=== PATIENT | male | born 1945 | race Caucasian/White ===

== ENCOUNTER 2018-09-01 11:00 | Inpatient (IN) ==
[2018-09-01] MEDS ORDERED: ALBUTEROL/IPRATROPIUM 3 ML NEB RESP TX STA (11:24)
[2018-09-01 11:33] LABS: Basophils % 0.2 % (0.0-0.8); Hematocrit 37.8 VOL% (42.0-52.0); Hemoglobin 12.8 GM/DL (14.0-18.0); Immature Granulocytes Absolute 0.18 #; Lymphocytes # 0.6 10*3/uL (1.4-4.0); Lymphocytes % 3.4 % (21.2-54.2); Mean Corpuscular HGB Conc 33.9 GM/DL (32-36); Mean Corpuscular Volume 89.2 FL (87-102); Mean Platelet Volume 8.5 FL (9.6-12.0); Monocytes % 1.7 % (1.7-12.7); Neutrophils % 93.7 % (38.7-73.9); Platelet Count 399 T/CUMM (130-400); Red Blood Count 4.24 MC/CUMM (3.8-5.5); White Blood Count 17.4 T/CUMM (4-12)
[2018-09-01 11:52] LABS: Band Neutrophils 1 % (0-10); Lymphocytes 4 % (20-55); Platelet Estimate Adequate; Segmented Neutrophils 93 % (50-85); Total Cells Counted 100
[2018-09-01 11:54] LABS: Albumin 3.1 G/DL (3.4-5.0); Bilirubin,Total 0.9 MG/DL (0.2-1.0); Calcium 8.8 MG/DL (8.5-10.1); Osmolality,Calculated 269.4 MOS/KG (273-304); Total Protein 6.9 G/DL (6.4-8.3)
[2018-09-01] MEDS ORDERED: cefTRIAXone 1,000 MG in SODIUM CHLORIDE 0.9% 100 ML IV STA (12:52)
[2018-09-01] MEDS ORDERED: ALBUTEROL 2.5 MG/3 ML NEB RESP TX PRN (14:02)
[2018-09-01] MEDS ORDERED: ONDANSETRON 4 MG/2 ML VIAL IV PRN (14:05)
[2018-09-01] MEDS ORDERED: ACETAMINOPHEN 325 MG TABLET PO PRN (14:05)
[2018-09-01] MEDS: methylPREDNISolone SOD SUC 40 MG/1 ML VIAL IV SCH ×2 (16:46→21:36)
[2018-09-01] MEDS: ENOXAPARIN 40 MG/0.4 ML SYRINGE SUBCUT SCH (16:48)
[2018-09-01] MEDS: LEVOFLOXACIN INJ 750 MG in PREMIX 1 EACH IV SCH (16:50)
[2018-09-01] MEDS: ALBUTEROL/IPRATROPIUM 3 ML NEB RESP TX SCH (19:10)
[2018-09-01] MEDS: oxyCODONE/ACETAMINOPHEN 5-325 MG TABLET PO PRN (21:37)
[2018-09-02] MEDS: ALBUTEROL/IPRATROPIUM 3 ML NEB RESP TX SCH ×4 (00:33→20:16)
[2018-09-02 05:52] LABS: Hematocrit 34.3 VOL% (42.0-52.0); Hemoglobin 11.6 GM/DL (14.0-18.0); Immature Granulocytes % 0.3 %; Immature Granulocytes Absolute 0.02 #; Lymphocytes # 0.2 10*3/uL (1.4-4.0); Lymphocytes % 2.3 % (21.2-54.2); Mean Corpuscular HGB Conc 33.8 GM/DL (32-36); Mean Corpuscular Volume 90.3 FL (87-102); Mean Platelet Volume 9.1 FL (9.6-12.0); Monocytes % 1.5 % (1.7-12.7); Neutrophils % 95.9 % (38.7-73.9); Platelet Count 338 T/CUMM (130-400); Red Cell Distribution Width 12.2 % (9.3-17.3); White Blood Count 6.6 T/CUMM (4-12)
[2018-09-02] MEDS: methylPREDNISolone SOD SUC 40 MG/1 ML VIAL IV SCH ×3 (06:00→22:20)
[2018-09-02 06:17] LABS: Albumin 2.5 G/DL (3.4-5.0); Bilirubin,Total 0.5 MG/DL (0.2-1.0); Osmolality,Calculated 276.1 MOS/KG (273-304); Total Protein 7.3 G/DL (6.4-8.3)
[2018-09-02 06:17] LABS: Band Neutrophils 2 % (0-10); Burr Cells Slight; Hypochromasia 1+; Ovalocytes Slight; Platelet Estimate Adequate; Segmented Neutrophils 95 % (50-85); Total Cells Counted 100
[2018-09-02] MEDS ORDERED: VARENICLINE 1 MG PO SCH (09:00)
[2018-09-02] MEDS ORDERED: MECLIZINE 25 MG TABLET PO PRN (09:02)
[2018-09-02] MEDS: POTASSIUM CHLORIDE 20 MEQ TABLET PO PRN ×3 (09:37→17:55)
[2018-09-02] MEDS: ASPIRIN EC 81 MG TABLET PO SCH (09:38)
[2018-09-02] MEDS: DILTIAZEM CD 240 MG CAPSULE PO SCH (09:41)
[2018-09-02] MEDS: oxyCODONE/ACETAMINOPHEN 5-325 MG TABLET PO PRN ×2 (09:54→22:24)
[2018-09-02] MEDS ORDERED: METOPROLOL TARTRATE 5 MG/5 ML VIAL IV ONE ×2 (13:02→13:09)
[2018-09-02] MEDS: ENOXAPARIN 40 MG/0.4 ML SYRINGE SUBCUT SCH (14:37)
[2018-09-02] MEDS: LEVOFLOXACIN INJ 750 MG in PREMIX 1 EACH IV SCH (14:38)
[2018-09-02] MEDS: NEBIVOLOL 5 MG TABLET PO SCH (15:56)
[2018-09-03] MEDS: ALBUTEROL/IPRATROPIUM 3 ML NEB RESP TX SCH ×4 (01:19→20:01)
[2018-09-03 04:06] LABS: Basophils % 0.1 % (0.0-0.8); Hematocrit 35.5 VOL% (42.0-52.0); Hemoglobin 11.8 GM/DL (14.0-18.0); Immature Granulocytes % 0.7 %; Immature Granulocytes Absolute 0.06 #; Lymphocytes # 0.3 10*3/uL (1.4-4.0); Mean Corpuscular HGB Conc 33.2 GM/DL (32-36); Mean Corpuscular Volume 90.3 FL (87-102); Mean Platelet Volume 8.8 FL (9.6-12.0); Monocytes % 2.1 % (1.7-12.7); Neutrophils % 94.1 % (38.7-73.9); Platelet Count 424 T/CUMM (130-400); Red Blood Count 3.93 MC/CUMM (3.8-5.5); Red Cell Distribution Width 12.2 % (9.3-17.3); White Blood Count 8.6 T/CUMM (4-12)
[2018-09-03 04:29] LABS: Calcium 8.8 MG/DL (8.5-10.1); Osmolality,Calculated 275.2 MOS/KG (273-304)
[2018-09-03 04:45] LABS: Lymphocytes 3 % (20-55); Platelet Estimate Normal; Segmented Neutrophils 96 % (50-85); Total Cells Counted 100
[2018-09-03] MEDS: methylPREDNISolone SOD SUC 40 MG/1 ML VIAL IV SCH (05:50)
[2018-09-03] MEDS: ASPIRIN EC 81 MG TABLET PO SCH (10:07)
[2018-09-03] MEDS: oxyCODONE/ACETAMINOPHEN 5-325 MG TABLET PO PRN ×2 (10:07→21:55)
[2018-09-03] MEDS: NEBIVOLOL 5 MG TABLET PO SCH (11:41)
[2018-09-03] MEDS: DILTIAZEM CD 240 MG CAPSULE PO SCH (14:17)
[2018-09-03] MEDS: ENOXAPARIN 40 MG/0.4 ML SYRINGE SUBCUT SCH (14:56)
[2018-09-03] MEDS: LEVOFLOXACIN INJ 750 MG in PREMIX 1 EACH IV SCH (14:56)
[2018-09-04] MEDS: ALBUTEROL/IPRATROPIUM 3 ML NEB RESP TX SCH ×4 (01:50→20:29)
[2018-09-04 05:56] LABS: Hematocrit 33.9 VOL% (42.0-52.0); Hemoglobin 11.2 GM/DL (14.0-18.0); Immature Granulocytes % 0.5 %; Immature Granulocytes Absolute 0.03 #; Lymphocytes # 0.3 10*3/uL (1.4-4.0); Lymphocytes % 4.5 % (21.2-54.2); Mean Corpuscular Volume 89.4 FL (87-102); Mean Platelet Volume 9.1 FL (9.6-12.0); Monocytes % 5.5 % (1.7-12.7); Neutrophils % 89.5 % (38.7-73.9); Platelet Count 388 T/CUMM (130-400); Red Blood Count 3.79 MC/CUMM (3.8-5.5); Red Cell Distribution Width 12.6 % (9.3-17.3)
[2018-09-04 06:08] LABS: Calcium 8.9 MG/DL (8.5-10.1); Osmolality,Calculated 276.1 MOS/KG (273-304)
[2018-09-04 06:15] LABS: Lymphocytes 2 % (20-55); Platelet Estimate Normal; Segmented Neutrophils 96 % (50-85); Total Cells Counted 100
[2018-09-04 06:16] LABS: Hypochromasia Slight
[2018-09-04] MEDS: NEBIVOLOL 5 MG TABLET PO SCH (09:41)
[2018-09-04] MEDS: ASPIRIN EC 81 MG TABLET PO SCH (09:41)
[2018-09-04] MEDS: oxyCODONE/ACETAMINOPHEN 5-325 MG TABLET PO PRN ×2 (09:42→21:03)
[2018-09-04] MEDS: DILTIAZEM CD 240 MG CAPSULE PO SCH (09:42)
[2018-09-04] MEDS: ENOXAPARIN 40 MG/0.4 ML SYRINGE SUBCUT SCH (13:52)
[2018-09-04] MEDS: LEVOFLOXACIN INJ 750 MG in PREMIX 1 EACH IV SCH (13:52)
[2018-09-05] MEDS: ALBUTEROL/IPRATROPIUM 3 ML NEB RESP TX SCH ×4 (01:30→19:38)
[2018-09-05 04:02] LABS: Basophils % 0.2 % (0.0-0.8); Eosinophils % 0.4 % (0.00-10.9); Hematocrit 35.2 VOL% (42.0-52.0); Hemoglobin 11.8 GM/DL (14.0-18.0); Immature Granulocytes % 0.9 %; Immature Granulocytes Absolute 0.05 #; Lymphocytes # 0.7 10*3/uL (1.4-4.0); Lymphocytes % 13.1 % (21.2-54.2); Mean Corpuscular HGB Conc 33.5 GM/DL (32-36); Mean Corpuscular Volume 89.6 FL (87-102); Mean Platelet Volume 9.2 FL (9.6-12.0); Monocytes % 8.5 % (1.7-12.7); Neutrophils % 76.9 % (38.7-73.9); Platelet Count 416 T/CUMM (130-400); Red Blood Count 3.93 MC/CUMM (3.8-5.5); Red Cell Distribution Width 12.7 % (9.3-17.3); White Blood Count 5.7 T/CUMM (4-12)
[2018-09-05 04:22] LABS: Calcium 8.6 MG/DL (8.5-10.1); Osmolality,Calculated 283.3 MOS/KG (273-304)
[2018-09-05] MEDS: DILTIAZEM CD 240 MG CAPSULE PO SCH (09:26)
[2018-09-05] MEDS: ASPIRIN EC 81 MG TABLET PO SCH (09:26)
[2018-09-05] MEDS: oxyCODONE/ACETAMINOPHEN 5-325 MG TABLET PO PRN ×2 (09:26→20:59)
[2018-09-05] MEDS: NEBIVOLOL 5 MG TABLET PO SCH (09:26)
[2018-09-05] MEDS: ENOXAPARIN 40 MG/0.4 ML SYRINGE SUBCUT SCH (16:02)
[2018-09-05] MEDS: LEVOFLOXACIN INJ 750 MG in PREMIX 1 EACH IV SCH (16:06)
[2018-09-06] MEDS: ALBUTEROL/IPRATROPIUM 3 ML NEB RESP TX SCH ×4 (00:29→19:29)
[2018-09-06 05:33] LABS: Basophils % 0.4 % (0.0-0.8); Eosinophils # 0.2 10*3/uL (0.0-0.87); Eosinophils % 3.6 % (0.00-10.9); Hematocrit 34.9 VOL% (42.0-52.0); Hemoglobin 11.3 GM/DL (14.0-18.0); Immature Granulocytes % 1.6 %; Immature Granulocytes Absolute 0.09 #; Lymphocytes # 0.8 10*3/uL (1.4-4.0); Lymphocytes % 14.6 % (21.2-54.2); Mean Corpuscular HGB Conc 32.4 GM/DL (32-36); Mean Corpuscular Volume 90.9 FL (87-102); Monocytes % 8.9 % (1.7-12.7); Neutrophils % 70.9 % (38.7-73.9); Platelet Count 394 T/CUMM (130-400); Red Blood Count 3.84 MC/CUMM (3.8-5.5); Red Cell Distribution Width 12.7 % (9.3-17.3); White Blood Count 5.5 T/CUMM (4-12)
[2018-09-06 05:51] LABS: Calcium 8.4 MG/DL (8.5-10.1); Osmolality,Calculated 277.7 MOS/KG (273-304)
[2018-09-06] MEDS: PANTOPRAZOLE 40 MG TABLET PO SCH (09:39)
[2018-09-06] MEDS: ASPIRIN EC 81 MG TABLET PO SCH (09:39)
[2018-09-06] MEDS: NEBIVOLOL 5 MG TABLET PO SCH (09:39)
[2018-09-06] MEDS: oxyCODONE/ACETAMINOPHEN 5-325 MG TABLET PO PRN ×2 (09:39→18:03)
[2018-09-06] MEDS: DILTIAZEM CD 240 MG CAPSULE PO SCH (09:39)
[2018-09-06] MEDS: LEVOFLOXACIN 750 MG TABLET PO SCH (12:45)
[2018-09-06] MEDS: ENOXAPARIN 40 MG/0.4 ML SYRINGE SUBCUT SCH (17:29)
[2018-09-06] MEDS: predniSONE 20 MG TABLET PO SCH (17:30)
[2018-09-06] MEDS: SODIUM CHLORIDE 0.9% 1,000 ML IV SCH (17:30)
[2018-09-07] MEDS: ALBUTEROL/IPRATROPIUM 3 ML NEB RESP TX SCH ×4 (00:13→20:07)
[2018-09-07 03:17] LABS: Basophils % 0.4 % (0.0-0.8); Hematocrit 33.1 VOL% (42.0-52.0); Hemoglobin 10.9 GM/DL (14.0-18.0); Immature Granulocytes % 2.8 %; Immature Granulocytes Absolute 0.14 #; Lymphocytes # 0.4 10*3/uL (1.4-4.0); Lymphocytes % 7.7 % (21.2-54.2); Mean Corpuscular HGB Conc 32.9 GM/DL (32-36); Mean Corpuscular Volume 90.4 FL (87-102); Mean Platelet Volume 8.9 FL (9.6-12.0); Monocytes % 2.9 % (1.7-12.7); Neutrophils % 86.2 % (38.7-73.9); Platelet Count 378 T/CUMM (130-400); Red Blood Count 3.66 MC/CUMM (3.8-5.5); Red Cell Distribution Width 12.4 % (9.3-17.3); White Blood Count 5.1 T/CUMM (4-12)
[2018-09-07 03:32] LABS: Osmolality,Calculated 280.7 MOS/KG (273-304)
[2018-09-07] MEDS: SODIUM CHLORIDE 0.9% 1,000 ML IV SCH ×2 (06:26→18:19)
[2018-09-07] MEDS: ASPIRIN EC 81 MG TABLET PO SCH (09:08)
[2018-09-07] MEDS: predniSONE 20 MG TABLET PO SCH (09:08)
[2018-09-07] MEDS: LEVOFLOXACIN 750 MG TABLET PO SCH (09:08)
[2018-09-07] MEDS: PANTOPRAZOLE 40 MG TABLET PO SCH (09:08)
[2018-09-07] MEDS: ENOXAPARIN 40 MG/0.4 ML SYRINGE SUBCUT SCH (15:30)
[2018-09-07] MEDS: oxyCODONE/ACETAMINOPHEN 5-325 MG TABLET PO PRN (21:03)
[2018-09-08] MEDS: ALBUTEROL/IPRATROPIUM 3 ML NEB RESP TX SCH ×4 (01:39→19:04)
[2018-09-08] MEDS: SODIUM CHLORIDE 0.9% 1,000 ML IV SCH ×2 (09:31→23:56)
[2018-09-08] MEDS: predniSONE 20 MG TABLET PO SCH (09:39)
[2018-09-08] MEDS: ASPIRIN EC 81 MG TABLET PO SCH (09:39)
[2018-09-08] MEDS: PANTOPRAZOLE 40 MG TABLET PO SCH (09:39)
[2018-09-08] MEDS: oxyCODONE/ACETAMINOPHEN 5-325 MG TABLET PO PRN ×2 (09:39→21:39)
[2018-09-08] MEDS: ENOXAPARIN 40 MG/0.4 ML SYRINGE SUBCUT SCH (14:50)
[2018-09-08] MEDS: DRONEDARONE 400 MG TABLET PO SCH (21:39)
[2018-09-09] MEDS: ALBUTEROL/IPRATROPIUM 3 ML NEB RESP TX SCH ×2 (00:53→07:06)
[2018-09-09 03:52] LABS: Basophils % 0.1 % (0.0-0.8); Eosinophils % 0.1 % (0.00-10.9); Hematocrit 30.6 VOL% (42.0-52.0); Hemoglobin 10.4 GM/DL (14.0-18.0); Immature Granulocytes % 1.8 %; Immature Granulocytes Absolute 0.15 #; Lymphocytes # 0.7 10*3/uL (1.4-4.0); Mean Corpuscular Volume 89.5 FL (87-102); Mean Platelet Volume 8.9 FL (9.6-12.0); Monocytes % 7.3 % (1.7-12.7); Neutrophils % 82.7 % (38.7-73.9); Platelet Count 393 T/CUMM (130-400); Red Blood Count 3.42 MC/CUMM (3.8-5.5); White Blood Count 8.1 T/CUMM (4-12)
[2018-09-09 04:13] LABS: Calcium 7.7 MG/DL (8.5-10.1); Osmolality,Calculated 280.3 MOS/KG (273-304)
[2018-09-09] MEDS: predniSONE 20 MG TABLET PO SCH (08:28)
[2018-09-09] MEDS: DRONEDARONE 400 MG TABLET PO SCH (08:31)
[2018-09-09] MEDS: ASPIRIN EC 81 MG TABLET PO SCH (08:31)
[2018-09-09] MEDS: oxyCODONE/ACETAMINOPHEN 5-325 MG TABLET PO PRN (08:31)
[2018-09-09] MEDS: PANTOPRAZOLE 40 MG TABLET PO SCH (08:31)
[2018-09-09] MEDS: DILTIAZEM CD 240 MG CAPSULE PO SCH (08:35)
[2018-09-09] MEDS: SODIUM CHLORIDE 0.9% 1,000 ML IV SCH (10:57)
[2018-09-09 12:12] VITALS: BP 104/62
== END 2018-09-09 13:32 | disposition home or self-care (01) | DRG 190 ==
LOC: EDUNIT# → EDBD → N.ED 11:00 → SUATTDRO 14:05 → N.EDINP 14:05 → N.5E 17:27 → N.CC 09-02 13:16 → N.TELEN 09-03 16:04
PROVIDERS: ADMIT Hospitalist

== ENCOUNTER 2021-10-12 11:45 | Observation (INO) ==
[2021-10-12 16:38] LABS: Calcium 8.5 MG/DL (8.5-10.1); Osmolality,Calculated 276.7 MOS/KG (273-304); Potassium 4.6 MMOL/L (3.5-5.1)
[2021-10-12 16:46] LABS: Hematocrit 38.9 VOL% (42.0-52.0); Hemoglobin 13.2 GM/DL (14.0-18.0); Immature Granulocytes % 0.7 %; Immature Granulocytes Absolute 0.06 #; Lymphocytes # 0.7 10*3/uL (1.4-4.0); Lymphocytes % 7.9 % (21.2-54.2); Mean Corpuscular HGB Conc 33.9 GM/DL (32-36); Mean Corpuscular Volume 90.3 FL (87-102); Mean Platelet Volume 8.8 FL (9.6-12.0); Monocytes # 0.3 10*3/uL (0.11-0.8); Monocytes % 3.8 % (1.7-12.7); Neutrophils % 87.6 % (38.7-73.9); Platelet Count 260 T/CUMM (130-400); Red Blood Count 4.31 MC/CUMM (3.8-5.5); Red Cell Distribution Width 12.5 % (9.3-17.3); White Blood Count 8.5 T/CUMM (4-12)
[2021-10-12] MEDS: ACETAMINOPHEN 325 MG TABLET PO PRN (18:21)
[2021-10-12] MEDS ORDERED: ENOXAPARIN 40 MG/0.4 ML SYRINGE SUBCUT SCH (21:00)
[2021-10-13] MEDS: ACETAMINOPHEN 325 MG TABLET PO PRN (03:17)
[2021-10-13 05:17] LABS: Basophils % 0.1 % (0.0-0.8); Eosinophils # 0.1 10*3/uL (0.0-0.87); Eosinophils % 1.4 % (0.00-10.9); Hematocrit 40.4 VOL% (42.0-52.0); Hemoglobin 14.1 GM/DL (14.0-18.0); Immature Granulocytes % 0.7 %; Immature Granulocytes Absolute 0.06 #; Lymphocytes # 1.5 10*3/uL (1.4-4.0); Mean Corpuscular HGB Conc 34.9 GM/DL (32-36); Mean Corpuscular Volume 87.8 FL (87-102); Mean Platelet Volume 8.9 FL (9.6-12.0); Monocytes # 0.6 10*3/uL (0.11-0.8); Monocytes % 6.6 % (1.7-12.7); Neutrophils % 74.2 % (38.7-73.9); Platelet Count 278 T/CUMM (130-400); Red Cell Distribution Width 12.2 % (9.3-17.3); White Blood Count 8.7 T/CUMM (4-12)
[2021-10-13 05:29] LABS: Albumin 2.9 G/DL (3.4-5.0); Bilirubin,Total 0.9 MG/DL (0.20-1.00); Calcium 8.8 MG/DL (8.5-10.1); Osmolality,Calculated 274.5 MOS/KG (273-304); Potassium 3.8 MMOL/L (3.5-5.1); Total Protein 6.6 G/DL (6.4-8.2)
[2021-10-13] MEDS ORDERED: ASPIRIN EC 81 MG TABLET PO SCH (09:00)
[2021-10-13] MEDS ORDERED: DILTIAZEM CD 240 MG CAPSULE PO SCH (09:00)
[2021-10-13 12:30] VITALS: BP 121/67
== END 2021-10-13 13:41 | disposition home or self-care (01) ==
LOC: N.TELEN → SUATTDRO 13:59
PROVIDERS: ADMIT Internal Medicine; ATTEND Internal Medicine